=== PATIENT | female | born 1960 | race Caucasian/White ===

== ENCOUNTER 2023-06-30 09:41 | Outpatient (CLI) | payer MEDICARE | END 2023-06-30 09:42 | disposition home or self-care (01) | LOC: RAD 09:41 | PROVIDERS: ATTEND Internal Medicine | DX: R06.00 Dyspnea, unspecified (principal) | CPT/HCPCS: 71046 ==

== ENCOUNTER 2024-06-29 15:37 | Outpatient (CLI) | payer OTHER | END 2024-06-29 15:38 | disposition home or self-care (01) | LOC: RAD 15:37 | PROVIDERS: ATTEND Internal Medicine | DX: R06.00 Dyspnea, unspecified (principal) | CPT/HCPCS: 71046 ==

== ENCOUNTER 2025-10-02 12:14 | Outpatient (CLI) | payer OTHER | END 2025-10-02 12:15 | disposition home or self-care (01) | LOC: RAD 12:14 | PROVIDERS: ATTEND Internal Medicine | DX: R06.00 Dyspnea, unspecified (principal) | CPT/HCPCS: 71046 ==

== ENCOUNTER 2025-10-18 13:12 | Outpatient (CLI) | payer OTHER | END 2025-10-18 13:13 | disposition home or self-care (01) | LOC: SCSMRI 13:12 | PROVIDERS: ATTEND Orthopaedic Surgery | DX: S83.231A Complex tear of medial meniscus, current injury, right knee, initial encounter (principal) ==